=== PATIENT | female | born 1935 | race Caucasian/White ===

== ENCOUNTER 2017-04-09 11:30 | Outpatient (CLI) | payer MEDICARE ==
--- NOTE | 2017-04-11 08:36 | Mammography Report ---
EXAM: DIGITAL BILATERAL SCREENING MAMMOGRAM: 04/10/2017 CLINICAL INDICATION: A 81-year-old nulliparous patient, for screening. COMPARISON: 09/2015, 08/2014, 06/2013, 11/2011, 11/2010, 09/2009. TECHNIQUE: Routine CC and MLO projections were obtained of the breasts. FINDINGS: The breasts demonstrate scattered fibroglandular densities bilaterally. Coarse and punctate, typically benign calcifications are present. No suspicious masses, clustered microcalcifications, or regions of architectural distortion are identified. IMPRESSION: BENIGN FINDINGS. RECOMMENDATIONS: Routine annual screening unless otherwise clinically indicated. BIRADS CATEGORY 2-BENIGN FINDINGS. STANDARD QUALIFYING STATEMENTS: 1. This examination was reviewed with the aid of Computer-Aided Detection (CAD). 2. A negative or benign imaging report should not delay biopsy if clinically suspicious findings are present. Consider surgical consultation if warranted. More than 5% of cancers are not identified by imaging. 3. Dense breasts may obscure an underlying neoplasm. TD: 04/10/2017 16:32 [facility]
== END 2017-04-09 11:31 | disposition home or self-care (01) ==
LOC: DI 11:30
PROVIDERS: ATTEND Family Medicine
DX: Z12.31 Encounter for screening mammogram for malignant neoplasm of breast (principal)
CPT/HCPCS: 77067

== ENCOUNTER 2018-07-09 13:52 | Outpatient (CLI) | payer MEDICARE ==
--- NOTE | 2018-07-10 08:13 | Mammography Report ---
Reason: SCREENING MAMMO Procedure Date: 07/09/2018 Accession Number: [id number] / [id number] Procedure: FREDI - Screening Mammo w/William CPT Code: FULL RESULT: EXAM: Screening Mammo w/William DATE: 07/09/2018 2:16 PM CLINICAL HISTORY: Routine screening. No reported personal or family history of breast cancer. TECHNIQUE: Bilateral CC and MLO views were obtained. COMPARISON: 04/09/2017 through 12/08/2010 FINDINGS: The breasts demonstrate scattered fibroglandular densities bilaterally. Right breast: There is an equal density oval 8 mm mass/asymmetry with indistinct margins in the 12:00 breast, 6.5 cm from the nipple. There are no suspicious calcifications or areas of distortion. Left breast: There are no suspicious masses, calcifications or areas of distortion. IMPRESSION: Right breast: Oval 8mm mass/asymmetry 12:00 breast 6.5 cm from the nipple. Incomplete. BI-RADS Category 0. Additional imaging and possible ultrasound recommended. Left breast: Negative. BI-RADS Category 1. Recommend annual screening mammography. BI-RADS CATEGORY 0: Incomplete examination STANDARD QUALIFYING STATEMENTS: 1. This examination was not reviewed with the aid of Computer-Aided Detection (CAD). 2. A negative or benign imaging report should not preclude biopsy if clinically suspicious findings are present. 3. Dense breasts may obscure an underlying neoplasm. 4. This examination was reviewed with the aid of 3D breast imaging (tomosynthesis).
== END 2018-07-09 13:53 | disposition home or self-care (01) ==
LOC: DI 13:52
DX: Z12.31 Encounter for screening mammogram for malignant neoplasm of breast (principal); R92.8 Other abnormal and inconclusive findings on diagnostic imaging of breast
CPT/HCPCS: 77063; 77067

== ENCOUNTER 2018-07-21 13:20 | Outpatient (CLI) | payer MEDICARE ==
--- NOTE | 2018-07-21 16:41 | Mammography Report ---
Reason: ABN MAMMOGRAM Procedure Date: 07/21/2018 Accession Number: [id number] / [id number] Procedure: FREDI - Diag Special Views Dig RT CPT Code: FULL RESULT: EXAM: Diag Special Views Dig RT, Breast Unilateral Limited DATE: 07/21/2018 2:00 PM CLINICAL HISTORY: Recall from screening exam 07/09/2018 for right breast 8mm mass/asymmetry 12:00 right breast. No reported personal or family history of breast cancer. TECHNIQUE: (R) - Right for magnification right CC, MLO. 90 degree lateral 2-D/3-D. Real-time ultrasound by both the technologist and the radiologist. COMPARISON: 07/09/2018 through 07/14/2013. FINDINGS: Right breast: Additional images reconfirm a 7 to 8 mm isodense oval asymmetry in the 12:00 breast, 6 cm from the nipple. There are no suspicious calcifications or areas of distortion. Targeted ultrasound of the 12:00 breast is performed in a wide area by both the technologist and the radiologist. No sonographic correlate to mammographic asymmetry is noted. PARENCHYMAL PATTERN: (A) - The breasts demonstrate scattered fibroglandular densities bilaterally. IMPRESSION: Right breast: 8 mm isodense asymmetry 12:00 breast without sonographic correlate. Probably benign. BI-RADS Category 3. Six-month follow-up surveillance mammography is recommended to ensure expected stability. RECOMMENDATION: (6MOS) - Recommend 6 month follow-up exam. BI-RADS CATEGORY: (3) - Probably Benign STANDARD QUALIFYING STATEMENTS: 1. This examination was not reviewed with the aid of Computer-Aided Detection (CAD). 2. A negative or benign imaging report should not preclude biopsy if clinically suspicious findings are present. 3. Dense breasts may obscure an underlying neoplasm. 4. This examination was reviewed with the aid of 3D breast imaging (tomosynthesis).
== END 2018-07-21 13:21 | disposition home or self-care (01) ==
LOC: DI 13:20
PROVIDERS: ATTEND Family Medicine
DX: R92.8 Other abnormal and inconclusive findings on diagnostic imaging of breast (principal)
CPT/HCPCS: 76642

== ENCOUNTER 2019-01-23 12:36 | Outpatient (CLI) | payer MEDICARE ==
--- NOTE | 2019-01-23 15:08 | Mammography Report ---
Reason: ABNORMAL MAMMOGRAM Procedure Date: 01/23/2019 Accession Number: [id number] / [id number] Procedure: FREDI - Diagnostic Dig RT CPT Code: FULL RESULT: EXAM: Diagnostic Dig RT; Targeted Right Breast Ultrasound DATE: 01/23/2019 1:30 PM CLINICAL HISTORY: Follow-up on indeterminate superior right breast mass. TECHNIQUE: (B) - Bilateral CC and MLO views were obtained. In addition, targeted right breast ultrasound was performed and scanned from 10:00 to 2:00. COMPARISON: 07/21/2018 PARENCHYMAL PATTERN: (A) - The breasts demonstrate scattered fibroglandular densities bilaterally. FINDINGS: On diagnostic right breast 2-D and 3-D mammography, there is again seen a mostly well-circumscribed oval mass in the approximate 12-2:00 position right breast, middle one third, not significantly changed compared to 07/21/2018. On mammography, there are otherwise no suspicious masses, calcifications, or areas of distortion. On targeted ultrasound, there is a hypoechoic wider than tall oval mass in the 2:00 position right breast nipple pulse 4 cm measuring 4 x 2 x 3 mm diameter. The mass has a hyperechoic center and is most likely an intramammary lymph node. There is good correlation with the mammographic findings. Findings were discussed with the patient. IMPRESSION: Probably Benign. BI-RADS category 3. RECOMMENDATION: (6MOS) - Recommend 6 month follow-up exam. Recommend 6 month follow-up right 3-D mammogram and targeted ultrasound. BI-RADS CATEGORY: (3) - Probably Benign. STANDARD QUALIFYING STATEMENTS: 1. This examination was not reviewed with the aid of Computer-Aided Detection (CAD). 2. A negative or benign imaging report should not preclude biopsy if clinically suspicious findings are present. 3. Dense breasts may obscure an underlying neoplasm. 4. This examination was reviewed with the aid of 3D breast imaging (tomosynthesis).
== END 2019-01-23 12:37 | disposition home or self-care (01) ==
LOC: DI 12:36
PROVIDERS: ATTEND Family Medicine
DX: R92.8 Other abnormal and inconclusive findings on diagnostic imaging of breast (principal)
CPT/HCPCS: 76642

== ENCOUNTER 2021-10-11 14:29 | Outpatient (CLI) | payer MEDICARE ==
[2021-10-11 15:00] LABS: ALBUMIN 4.5 g/dL (3.2-5.5); ALBUMIN/GLOBULIN RATIO 1.7 (1.0-2.2); BILIRUBIN,TOTAL 0.7 mg/dL (0.2-1.0); CREATININE 0.7 mg/dL (0.4-1.0); POTASSIUM 4.1 mmol/L (3.5-5.0); TOTAL PROTEIN 7.2 g/dL (6.7-8.2)
== END 2021-10-11 14:30 | disposition home or self-care (01) ==
LOC: LAB 14:29
PROVIDERS: ATTEND Internal Medicine Hematology & Oncology
DX: C50.411 Malignant neoplasm of upper-outer quadrant of right female breast (principal); Z17.0 Estrogen receptor positive status [ER+]; M85.832 Other specified disorders of bone density and structure, left forearm
CPT/HCPCS: 36415; 80053

== ENCOUNTER 2023-06-06 14:34 | Outpatient (CLI) | payer MEDICARE ==
[2023-06-06 15:00] LABS: ALBUMIN 4.6 g/dL (3.2-5.5); CALCIUM 9.9 mg/dL (8.5-10.3); CREATININE 0.8 mg/dL (0.6-1.3); PHOSPHORUS 3.6 mg/dL (2.5-5.0); POTASSIUM 4.3 mmol/L (3.5-4.5)
== END 2023-06-06 14:35 | disposition home or self-care (01) ==
LOC: LAB 14:34
PROVIDERS: ATTEND Internal Medicine
DX: E83.52 Hypercalcemia (principal)
CPT/HCPCS: 36415; 80069; 82306; 83970

== ENCOUNTER 2023-11-01 15:14 | Outpatient (CLI) | payer MEDICARE ==
[2023-11-01 16:06] LABS: BILIRUBIN,URINE NEGATIVE (NEGATIVE); GLUCOSE, URINE (UA) NEGATIVE (NEGATIVE); KETONES,URINE (UA) TRACE mg/dL (NEGATIVE); LEUKOCYTE ESTERASE, URINE SMALL (NEGATIVE); NITRITE,URINE NEGATIVE (NEGATIVE); OCCULT BLOOD,URINE TRACE-INTA (NEGATIVE); PROTEIN,URINE NEGATIVE (NEGATIVE); UROBILINOGEN,URINE 0.2 (NORMAL) E.U./dL (NORMAL)
[2023-11-01 16:07] LABS: CLARITY,URINE CLEAR (CLEAR)
[2023-11-01 16:28] LABS: BACTERIA,URINE Few /HPF (None Seen); RBC,URINE 0-5 /HPF (0-5); SQUAMOUS EPITHELIAL CELL,UR RARE Squamous (<= Few)
== END 2023-11-01 15:15 | disposition home or self-care (01) ==
LOC: LAB 15:14
DX: R30.0 Dysuria (principal)
CPT/HCPCS: 81001; 87086; 87181